=== PATIENT | male | born 1985 | race Caucasian/White ===

== ENCOUNTER 2019-01-23 03:59 | Emergency (ER) | payer SELFPAY ==
[2019-01-23 04:08] VITALS: BP 159/100
== END 2019-01-23 04:34 | disposition left against medical advice (07) ==
LOC: ED 03:59
DX: R07.89 Other chest pain (principal); Z53.21 Procedure and treatment not carried out due to patient leaving prior to being seen by health care provider
CPT/HCPCS: 93005; 93010